=== PATIENT | female | born 2000 | race Caucasian/White ===

== ENCOUNTER 2023-10-27 08:37 | Emergency (ER) | payer MEDICAID ==
[~2023-10-27] VITALS: Ht 172.7 cm; Wt 75.0 kg
[2023-10-27 08:41] VITALS: O2SAT 99
[2023-10-27] MEDS ORDERED: AMOX1TAB16 MT (08:59)
[2023-10-27 09:10] VITALS: BP 120/91; PULSE 80; RESP 16; TEMP 98.2
== END 2023-10-27 09:11 | disposition home or self-care (01) ==
LOC: ER 09:09
DX: S60.572A Other superficial bite of hand of left hand, initial encounter (principal); W54.0XXA Bitten by dog, initial encounter; Y93.89 Activity, other specified; Y92.89 Other specified places as the place of occurrence of the external cause; Y99.8 Other external cause status
CPT/HCPCS: 99283